=== PATIENT | male | born 1945 | race Caucasian/White ===

== ENCOUNTER 2016-08-12 11:35 | Outpatient (CLI) | payer MEDICARE, OTHER | END 2016-08-12 11:36 | disposition home or self-care (01) | DX: Z51.81 Encounter for therapeutic drug level monitoring (principal); N28.9 Disorder of kidney and ureter, unspecified; E11.9 Type 2 diabetes mellitus without complications; E78.5 Hyperlipidemia, unspecified; E87.5 Hyperkalemia ==

== ENCOUNTER 2016-08-22 08:00 | Outpatient (CLI) | payer MEDICARE, OTHER | END 2016-08-22 08:01 | disposition home or self-care (01) | DX: E87.5 Hyperkalemia (principal); N28.9 Disorder of kidney and ureter, unspecified; Z51.81 Encounter for therapeutic drug level monitoring ==

== ENCOUNTER 2016-12-07 08:00 | Outpatient (CLI) | payer MEDICARE, OTHER ==
[2016-12-07 20:12] LABS: BASOPHILS % (AUTO) 0.5 %; EOSINOPHILS # (AUTO) 0.3 10^3/uL (0.0-0.7); EOSINOPHILS % (AUTO) 4.3 %; HCT - HEMATOCRIT 46.3 % (42.0-52.0); HGB - HEMOGLOBIN 15.3 g/dL (14.0-18.0); LYMPHOCYTES # (AUTO) 2.3 10^3/uL (1.5-3.5); LYMPHOCYTES % (AUTO) 32.2 %; MEAN CORPUSCULAR HEMOGLOBIN 30.3 pg (27.0-31.0); MEAN CORPUSCULAR HGB CONC 32.9 g/dL (32.0-36.0); MEAN CORPUSCULAR VOLUME 91.8 fL (80.0-94.0); MEAN PLATELET VOLUME 8.7 fL (7.4-11.4); MONOCYTES # (AUTO) 0.5 10^3/uL (0.0-1.0); MONOCYTES % (AUTO) 7.2 %; NEUTROPHILS % (AUTO) 55.8 %; RED BLOOD COUNT 5.04 10^6/uL (4.70-6.10); RED CELL DISTRIBUTION WIDTH 13.1 % (12.0-15.0); UNCORRECTED WHITE BLOOD COUNT 7.1 x10^3/uL; WHITE BLOOD COUNT 7.1 x10^3/uL (4.8-10.8)
[2016-12-07 20:26] LABS: ALBUMIN/GLOBULIN RATIO 1.4 (1.0-2.2); BILIRUBIN,TOTAL 0.8 mg/dL (0.2-1.0); CALCIUM 10.2 mg/dL (8.5-10.3); CREATININE 1.4 mg/dL (0.6-1.2); POTASSIUM 4.5 mmol/L (3.5-5.0); TOTAL PROTEIN 7.2 g/dL (6.7-8.2)
[2016-12-07 20:30] LABS: HEMOGLOBIN A1C 0.59 g/dL
== END 2016-12-07 08:01 | disposition home or self-care (01) ==
LOC: LAB.WCP 08:00
PROVIDERS: ATTEND Physician Assistant Medical
DX: Z51.81 Encounter for therapeutic drug level monitoring (principal)
CPT/HCPCS: 36415; 80053; 83036; 85025

== ENCOUNTER 2016-12-20 11:17 | Outpatient (CLI) | payer MEDICARE, OTHER ==
--- NOTE | 2016-12-21 10:48 | Ultrasound Report ---
BILATERAL LOWER EXTREMITY ARTERIAL DUPLEX: 12/20/2016 CLINICAL INDICATION: Peripheral vascular disease. COMPARISON: 06/21/2011 TECHNIQUE: Real-time sonographic vascular imaging was performed by the director life sciences through the lower extremities utilizing both color-flow and Doppler spectral analysis. Multiple scheduling representative static images were saved for review. RIGHT SIDE SITE PSV WAVEFORM STEN FAN BLADE TRUER 105 triphasic PSFA 97 triphasic MSFA 80 triphasic DSFA 47 triphasic PFA 103 biphasic POP 41 triphasic POLLY 59 triphasic DIRECTOR OF ROTC 46 triphasic PER 40 biphasic DPA 47 biphasic LEFT SIDE SITE PSV WAVEFORM STEN FAN BLADE TRUER 105 triphasic PSFA 75 triphasic MSFA 96 triphasic DSFA 58 triphasic PFA 84 triphasic POP 40 triphasic POLLY 60 triphasic DIRECTOR OF ROTC 95 triphasic PER 41 triphasic DPA 58 triphasic TECHNIQUE: Real-time scanning was performed. FINDINGS: RIGHT LEG: Waveforms are predominately triphasic. There is no evidence of a focal velocity increase to suggest a hemodynamically significant stenosis. LEFT LEG: Waveforms are diffusely triphasic. There is no evidence of a focal velocity increase to suggest a hemodynamically significant stenosis. IMPRESSION: NO EVIDENCE OF A HEMODYNAMICALLY SIGNIFICANT STENOSIS IN EITHER LEG. NO SIGNIFICANT INTERVAL CHANGE. MTDD
== END 2016-12-20 11:18 | disposition home or self-care (01) ==
LOC: DI 11:17
PROVIDERS: ATTEND Physician Assistant Medical
DX: I73.9 Peripheral vascular disease, unspecified (principal)
CPT/HCPCS: 93925

== ENCOUNTER 2016-12-22 12:18 | Outpatient (CLI) | payer MEDICARE, OTHER ==
--- NOTE | 2016-12-22 17:04 | Ultrasound Report ---
RENAL ULTRASOUND: 12/22/2016 CLINICAL INDICATION: Renal insufficiency. TECHNIQUE: Real-time scanning was performed with sales and merchandising representative static images obtained. FINDINGS: The right kidney measures 11.9 x 5.8 x 5.5 cm, and the left kidney measures 12.1 x 5.6 x 4 .9 cm. No focal parenchymal lesion, hydronephrosis, or perinephric collection is present. Pre void, the bladder measures 14.6 x 11.9 x 8.2 cm, yielding a prevoid volume of 745 mL. Bilateral ureteral jets are visualized. Postvoid residual is 463 mL. IMPRESSION: NORMAL KIDNEYS. A 463 ML POSTVOID RESIDUAL. JOB #: [id number] EXT JOB #:[id number]
== END 2016-12-22 12:19 | disposition home or self-care (01) ==
LOC: DI 12:18
PROVIDERS: ATTEND Physician Assistant Medical
DX: N28.9 Disorder of kidney and ureter, unspecified (principal)
CPT/HCPCS: 76770

== ENCOUNTER 2017-02-22 14:29 | Outpatient (CLI) | payer MEDICARE, OTHER ==
[2017-02-22 13:12] LABS: ALBUMIN/GLOBULIN RATIO 1.6 (1.0-2.2); BUN - BLOOD UREA NITROGEN 23 mg/dL (6-20); CALCIUM 9.9 mg/dL (8.5-10.3); CARBON DIOXIDE - CO2 27 mmol/L (21-32); CHLORIDE 102 mmol/L (101-111); CHOL/HDL RATIO 3.7 (<5.0); CHOLESTEROL 142 mg/dL; CREATININE 1.2 mg/dL (0.6-1.2); GFR - MDRD 60 (>89); GLUCOSE 114 mg/dL (70-100); HDL CHOLESTEROL 38 mg/dL; LDL/HDL RATIO 2.1 (<3.6); POTASSIUM 4.3 mmol/L (3.5-5.0); SODIUM 137 mmol/L (135-145); TOTAL PROTEIN 7.4 g/dL (6.7-8.2); TRIGLYCERIDES 127 mg/dL; VLDL CHOLESTEROL 25 mg/dL
[2017-02-22 13:30] LABS: HEMOGLOBIN A1C 0.58 g/dL
== END 2017-02-22 14:30 | disposition home or self-care (01) ==
LOC: LAB.WCP 14:29
PROVIDERS: ATTEND Physician Assistant Medical
DX: Z51.81 Encounter for therapeutic drug level monitoring (principal); E11.9 Type 2 diabetes mellitus without complications; E78.5 Hyperlipidemia, unspecified
CPT/HCPCS: 36415; 80053; 80061; 83036

== ENCOUNTER 2017-09-29 14:15 | Outpatient (CLI) | payer MEDICARE, OTHER ==
[2017-09-29 19:44] LABS: BUN - BLOOD UREA NITROGEN 21 mg/dL (6-20); CALCIUM 8.8 mg/dL (8.5-10.3); CARBON DIOXIDE - CO2 27 mmol/L (21-32); CHLORIDE 105 mmol/L (101-111); CHOL/HDL RATIO 3.8 (<5.0); CHOLESTEROL 150 mg/dL; CREATININE 1.1 mg/dL (0.6-1.2); GFR - MDRD 66 (>89); GLUCOSE 115 mg/dL (70-100); HDL CHOLESTEROL 40 mg/dL; LDL CHOLESTEROL,CALCULATED 86 mg/dL; LDL/HDL RATIO 2.2 (<3.6); SODIUM 138 mmol/L (135-145); VLDL CHOLESTEROL 24 mg/dL
[2017-09-29 19:53] LABS: HB2 TOTAL 16.7 g/dL; HEMOGLOBIN A1C 0.67 g/dL; HEMOGLOBIN A1C % 5.8 % (4.6-6.2)
== END 2017-09-29 14:16 | disposition home or self-care (01) ==
LOC: LAB.WCP 14:15
PROVIDERS: ATTEND Family Medicine
DX: E11.9 Type 2 diabetes mellitus without complications (principal); E78.5 Hyperlipidemia, unspecified
CPT/HCPCS: 36415; 80048; 80061; 82043; 83036; 83721

== ENCOUNTER 2017-09-29 16:04 | Outpatient (CLI) | payer MEDICARE, OTHER | END 2017-09-29 16:05 | disposition home or self-care (01) | LOC: LAB.R 16:04 | PROVIDERS: ATTEND Family Medicine | DX: E11.9 Type 2 diabetes mellitus without complications (principal) | CPT/HCPCS: 82043 ==